=== PATIENT | female | born 1995 | race Two or more races ===

== ENCOUNTER 2016-11-02 20:02 | Emergency (ER) | payer SELFPAY ==
[~2016-11-02] VITALS: Ht 165.1 cm; Wt 70.8 kg
[2016-11-02 21:02] LABS: DEFINITIVE VIEW TRANSMISSION; Hematocrit 29.9 % (36.0-46.0); Hemoglobin 9.6 g/dL (12.2-16.2); Mean Corpuscular Hemoglobin 25.4 pg (28.0-32.0); Mean Corpuscular Hgb Conc. 32.1 g/dL (32.0-36.0); Mean Corpuscular Volume 79.2 fL (80.0-100.0); Mean Platelet Volume 6.8 fL (7.4-10.4); Platelet Count (auto) 416 10^3/uL (140-450); SUSPECT VIEW TRANSMISSION; White Blood Cell 21.7 10^3/uL (4.4-10.8)
[2016-11-02 21:08] LABS: Metamyelocytes % 0; Myelocytes % 0; Promyelocytes % 0; Reactive Lymphocytes 0
[2016-11-02 21:23] LABS: Albumin 2.7 g/dL (3.4-5.0); BUN/Creatinine Ratio 22.2; Calcium 7.5 mg/dL (8.5-10.1); Potassium 3.5 mmol/L (3.5-5.1)
[2016-11-02 21:25] LABS: Anisocytosis Slight; Bilirubin, Total 0.3 mg/dL (0.2-1.0); Hypochromia Slight; Platelet Estimate Adequate; Total Protein 6.9 g/dL (6.4-8.2)
[2016-11-03 05:13] LABS: Urine Bilirubin Negative (Negative); Urine Color Yellow (Yellow); Urine Glucose Normal (Normal); Urine Ketone Negative (Negative); Urine Mucus FEW (None Seen); Urine Nitrite Negative (Negative); Urine RBC 523 /hpf (0 - 4); Urine Squamous Epithelial Cell FEW /hpf (<5); Urine Urobilinogen Normal (Negative); Urine pH 5.5 (5.0-8.0)
[2016-11-03 05:14] LABS: Urine Blood 3+ /uL (Negative)
[2016-11-03] MEDS ORDERED: KETOROLAC TROMETH 30 MG/ML 1ML VIAL IV ONE (08:45)
[2016-11-03] MEDS ORDERED: cefTRIAXone 1GM/50ML D5W 50 ML IV ONE (08:45)
[2016-11-03] MEDS ORDERED: SODIUM CHLORIDE 0.9% 1,000 ML IVB ONE (08:45)
[2016-11-03 09:56] VITALS: BP 111/72
== END 2016-11-03 10:05 | disposition home or self-care (01) ==
LOC: ER 20:10
DX: J02.9 Acute pharyngitis, unspecified (principal); N39.0 Urinary tract infection, site not specified; E86.0 Dehydration; D64.9 Anemia, unspecified
CPT/HCPCS: 36415; 71020; 80053; 81001; 83605; 85007; 85027; 87040; 96365; 96375; 99285; J0696; J1885; J7030